=== PATIENT | female | born 1970 | race Caucasian/White ===

== ENCOUNTER 2022-11-10 11:50 | Emergency (ER) | payer MEDICAID, SELFPAY ==
[2022-11-10] MEDS ORDERED: Oxymetazoline HCl 0.05% (30 ML BOT) ONE (13:47)
[2022-11-10 13:58] LABS: #Basophils 0.1 thou/uL (0.0-0.2); #Eosinphils 0.1 thou/uL (0.0-0.7); #Lymphocytes 2.1 thou/uL (1.20-3.40); #Monocytes 0.4 thou/uL (0.11-0.59); #Neutrophils 5.1 thou/uL (1.40-6.50); %Basophils 0.9 % (0.0-1.0); %Eosinophils 1.3 % (0.0-10.0); %Lymphocytes 27.5 % (21.0-51.0); %Monocytes 5.5 % (0.0-10.0); %Neutrophils 64.8 % (42.0-75.0); Hemoglobin 8.8 g/dL (12.0-16.0); Mean Corpuscular HGB CONC 32.7 g/dL (32.0-36.0); Mean Corpuscular Hemoglobin 27.5 pg (27.0-31.0); Mean Corpuscular Volume 84.1 fl (78.0-98.0); Mean Platelet Volume 6.5 fL (7.4-10.4); Platelet Count 314 10x3/uL (130-400); RBC Distribution Width 13.7 % (11.5-14.5); White Blood Cell (WBC) Count 7.8 10x3/uL (4.8-10.8)
[2022-11-10 14:01] LABS: INR-International Normal Ratio 1.1; Prothrombin Time 14.9 sec (12.0-14.7)
[2022-11-10 14:02] LABS: PTT 28.3 sec (22.9-36.1)
[2022-11-10] MEDS ORDERED: Silver Nitrate Application 1 EACH ONE (14:11)
[2022-11-10] MEDS ORDERED: Tranexamic Acid 1,000 MG/10 ML VIAL ONE (14:47)
[2022-11-10] MEDS ORDERED: Lisinopril 10 MG TAB ONE (15:11)
== END 2022-11-10 15:34 | disposition home or self-care (01) ==
LOC: MADERS 11:50
DX: R04.1 Hemorrhage from throat (principal); E11.9 Type 2 diabetes mellitus without complications; I10 Essential (primary) hypertension; Z79.84 Long term (current) use of oral hypoglycemic drugs; Z79.899 Other long term (current) drug therapy
CPT/HCPCS: 30901; 36415; 85025; 85610; 85730; 86850; 86900; 86901

== ENCOUNTER 2022-11-12 08:12 | Emergency (ER) | payer MEDICAID ==
[2022-11-12] MEDS ORDERED: Silver Nitrate Application 1 EACH ONE (09:06)
[2022-11-12] MEDS ORDERED: Oxymetazoline HCl 0.05% (30 ML BOT) ONE (09:06)
== END 2022-11-12 09:44 | disposition home or self-care (01) ==
LOC: MADERS 08:12
DX: R51.9 Headache, unspecified (principal); E11.9 Type 2 diabetes mellitus without complications; I10 Essential (primary) hypertension; Z79.84 Long term (current) use of oral hypoglycemic drugs; Z79.899 Other long term (current) drug therapy
CPT/HCPCS: 99283